=== PATIENT | male | born 2005 | race Hispanic/Latino ===

== ENCOUNTER 2024-04-19 23:58 | Inpatient (IN) | payer SELFPAY ==
[2024-04-20] MEDS ORDERED: Boostrix 0.5 ML (Tdap) VIAL (>/=7 yrs of age) ONE (00:15)
[2024-04-20 00:27] LABS: #Basophils 0.03 10x3/uL (0.0-0.2); %Basophils 0.3 % (0.0-1.0); %Eosinophils 0.8 % (0.0-10.0); %Lymphocytes 39.8 % (28.0-48.0); %Monocytes 7.2 % (0.0-4.0); %Neutrophils 51.4 % (31.0-61.0); Hematocrit 39.6 % (42.0-52.0); Hemoglobin 13.8 g/dL (14.0-18.0); Mean Corpuscular HGB CONC 34.8 g/dL (32.0-36.0); Mean Corpuscular Hemoglobin 30.2 pg (25.0-35.0); Mean Corpuscular Volume 86.7 fL (78.0-98.0); Mean Platelet Volume 11.4 fL (7.4-10.4); Platelet Count 175 10x3/uL (130-400); Red Blood Cell (RBC) Count 4.57 mill/uL (4.00-5.20)
[2024-04-20 00:40] LABS: Acetaminophen Less than 10 mcg/mL (Less than 10); Alcohol Less than 10.0 mg/dL (Less than 10); Salicylate Less than 8.0 mg/dL (Less than 8.0)
[2024-04-20] MEDS ORDERED: CEFAZOLIN 2 GM VIAL ONE (00:40)
[2024-04-20] MEDS ORDERED: Sodium Chloride 0.9% 100 ML ONE (00:40)
[2024-04-20 01:10] LABS: Carbon Dioxide 21 mmol/L (22-29); Chloride 104 mmol/L (98-107); Sodium 139 mmol/L (136-145)
[2024-04-20 01:11] LABS: ALT (SGPT) 98 U/L (Less than 45); AST (SGOT) 52 U/L (11-34); Albumin 4.3 g/dL (3.1-4.5); Alkaline Phosphatase 71 U/L (50-130); Anion Gap 17 mmol/L (10-20); BUN (Urea Nitrogen) 16 mg/dL (8.4-21.0); Bilirubin, Total 0.5 mg/dL (0.3-1.2); Calc. Creatinine Clearance 0 mL/min (70-130); Calcium 8.6 mg/dL (7.6-10.4); Estimated GFR 93; Glucose 139 mg/dL (70-105); Protein, Total 7.3 g/dL (6.0-8.3)
[2024-04-20] MEDS ORDERED: hydrALAZINE 20 MG/ML VIAL SLOW IVP PRN (01:52)
[2024-04-20] MEDS ORDERED: Dextrose 50% Abboject 50 ML SYRINGE SLOW IVP PRN (01:52)
[2024-04-20] MEDS ORDERED: Glucagon 1 MG/ML KIT IM PRN (01:52)
[2024-04-20] MEDS ORDERED: Promethazine HCl 25 MG/ML VIAL IM PRN (01:52)
[2024-04-20] MEDS ORDERED: Morphine 2 MG/ML VIAL SLOW IVP PRN (01:52)
[2024-04-20] MEDS ORDERED: Ondansetron PF 4 MG/2 ML Vial IVP PRN (01:52)
[2024-04-20] MEDS ORDERED: Dextrose 5% in Water 1,000 ML IV PRN (01:52)
[2024-04-20] MEDS ORDERED: Pantoprazole 40 MG VIAL ONE (02:48)
[2024-04-20 03:05] LABS: #Basophils Less than 0.03 10x3/uL (0.0-0.2); #Eosinophils Less than 0.03 10x3/uL (0.0-0.7); %Basophils 0.1 % (0.0-1.0); %Lymphocytes 9.3 % (28.0-48.0); %Monocytes 7.2 % (0.0-4.0); %Neutrophils 82.9 % (31.0-61.0); Hematocrit 35.8 % (42.0-52.0); Hemoglobin 12.6 g/dL (14.0-18.0); Mean Corpuscular HGB CONC 35.2 g/dL (32.0-36.0); Mean Corpuscular Hemoglobin 29.9 pg (25.0-35.0); Mean Corpuscular Volume 84.8 fL (78.0-98.0); Mean Platelet Volume 11.3 fL (7.4-10.4); Platelet Count 150 10x3/uL (130-400); Red Blood Cell (RBC) Count 4.22 mill/uL (4.00-5.20)
[2024-04-20] MEDS ORDERED: Morphine 4 MG/ML VIAL ONE (03:30)
[2024-04-20] MEDS ORDERED: Electrolyte Replacement Protocol 1 EACH FS PRN (03:32)
[2024-04-20] MEDS: Morphine 4 MG/ML VIAL SLOW IVP PRN (03:32)
[2024-04-20 03:37] LABS: INR-International Normal Ratio 1.3; Prothrombin Time 16.2 sec (12.0-14.7)
[2024-04-20 03:38] LABS: PTT 29.1 sec (22.9-36.1)
[2024-04-20 04:05] LABS: ALT (SGPT) 89 U/L (Less than 45); AST (SGOT) 53 U/L (11-34); Alkaline Phosphatase 63 U/L (50-130); Anion Gap 12 mmol/L (10-20); BUN (Urea Nitrogen) 14 mg/dL (8.4-21.0); Bilirubin, Total 0.4 mg/dL (0.3-1.2); Calc. Creatinine Clearance 117 mL/min (70-130); Carbon Dioxide 23 mmol/L (22-29); Chloride 106 mmol/L (98-107); Estimated GFR 123; Globulin 2.5 g/dL (2.4-3.5); Glucose 155 mg/dL (70-105); Potassium 3.1 mmol/L (3.5-5.1); Protein, Total 6.4 g/dL (6.0-8.3); Sodium 138 mmol/L (136-145)
[2024-04-20 04:10] LABS: Albumin 3.9 g/dL (3.1-4.5)
[2024-04-20] MEDS ORDERED: Potassium Chloride 20 MEQ (100 mL) BAG ONE (05:47)
[2024-04-20 06:01] LABS: Magnesium 1.6 mg/dL (1.7-2.2)
[2024-04-20] MEDS: Potassium Chloride 20 MEQ in Premix 1 BAG IVPB SCH (06:03)
[2024-04-20] MEDS ORDERED: Acetaminophen 325 MG TAB ONE (07:55)
[2024-04-20] MEDS: Acetaminophen 325 MG TAB PO PRN (08:14)
[2024-04-20] MEDS ORDERED: Magnesium 2 GM/50 ML BAG (IN WATER) ONE (08:15)
[2024-04-20] MEDS: Magnesium 2 GM/50 ML(in water) 2 GM in Premix 1 BAG IVPB SCH (08:20)
[2024-04-20 09:15] VITALS: BMI 22.1
[2024-04-20] MEDS: levETIRAcetam 500 MG (5 mL) VIAL SLOW IVP SCH ×2 (11:30→21:06)
[2024-04-20 13:07] LABS: Glucose 139 mg/dL (70-105); Protein, Total 7.5 g/dL (6.0-8.3)
[2024-04-20 13:08] LABS: Anion Gap 15 mmol/L (10-20); Carbon Dioxide 22 mmol/L (22-29); Globulin 3.1 g/dL (2.4-3.5)
[2024-04-20 13:10] LABS: Alkaline Phosphatase 67 U/L (50-130)
[2024-04-20 13:11] LABS: BUN (Urea Nitrogen) 8 mg/dL (8.4-21.0); Calc. Creatinine Clearance 127 mL/min (70-130); Estimated GFR 128
[2024-04-20 13:13] LABS: ALT (SGPT) 92 U/L (Less than 45); AST (SGOT) 62 U/L (11-34)
[2024-04-20 13:19] LABS: Albumin 4.4 g/dL (3.1-4.5); Bilirubin, Total 0.9 mg/dL (0.3-1.2); Chloride 100 mmol/L (98-107); Sodium 133 mmol/L (136-145)
[2024-04-20] MEDS ORDERED: Iopamidol-370 76% 500 ML MDV (1 ML CHARGE) ONE (13:47)
[2024-04-20] MEDS: STERILE WATER IV SCH (14:36)
[2024-04-20] MEDS: SODIUM CHLORIDE IV SCH (14:36)
[2024-04-20 18:34] LABS: Sodium 132 mmol/L (136-145)
[2024-04-20] MEDS ORDERED: SODIUM CHLORIDE IV SCH (19:00)
[2024-04-20] MEDS ORDERED: STERILE WATER IV SCH (19:00)
[2024-04-20] MEDS: CEFAZOLIN 2 GM in Sodium Chloride 0.9% 100 ML IVPB SCH (21:06)
[2024-04-21] MEDS ORDERED: Acetaminophen 650 MG Suppository PR PRN (01:43)
[2024-04-21] MEDS: Morphine 4 MG/ML VIAL ONE (02:38)
[2024-04-21 03:10] LABS: #Basophils Less than 0.03 10x3/uL (0.0-0.2); #Eosinophils Less than 0.03 10x3/uL (0.0-0.7); %Basophils 0.1 % (0.0-1.0); %Eosinophils 0.1 % (0.0-10.0); %Lymphocytes 5.8 % (28.0-48.0); %Monocytes 8.7 % (0.0-4.0); %Neutrophils 84.8 % (31.0-61.0); Hematocrit 36.4 % (42.0-52.0); Hemoglobin 12.8 g/dL (14.0-18.0); Mean Corpuscular HGB CONC 35.2 g/dL (32.0-36.0); Mean Corpuscular Hemoglobin 30.1 pg (25.0-35.0); Mean Corpuscular Volume 85.6 fL (78.0-98.0); Mean Platelet Volume 11.3 fL (7.4-10.4); Platelet Count 174 10x3/uL (130-400); RBC Distribution Width 12.2 % (11.5-14.5); Red Blood Cell (RBC) Count 4.25 mill/uL (4.00-5.20)
[2024-04-21] MEDS: Morphine 2 MG/ML VIAL SLOW IVP SCH (03:10)
[2024-04-21] MEDS: Etomidate 40 MG (20 mL) VIAL IVP SCH (04:05)
[2024-04-21] MEDS: SUCCINYLCHOLINE/SOD CL,ISO/PF 200 MG/10 ML SYRINGE FS SCH (04:20)
[2024-04-21 04:27] LABS: Actual Bicarbonate (HCO3a) 20.7 mEq/L (22-28); CO2 Tension 36.6 mmHg (35.0-45.0); Calcium, Ionized (arterial) 1.18 mmol/L (1.12-1.30); Carboxyhemoglobin (COHb) 0.6 gm% (0.0-3.0); Hematocrit-ABG 43 % (42.0-52.0); Hemoglobin (Hb) 14.7 g/dL (11.4-15.4); O2 Tension (PaO2), arterial 414.2 mmHg (80.0-100.0); Potassium - ABG Lab 4.17 mmol/L (3.70-5.30); Puncture Site Right Radial artery
[2024-04-21] MEDS: levETIRAcetam 500 MG (5 mL) VIAL SLOW IVP SCH (05:15)
[2024-04-21] MEDS: Mannitol 12.5 GM/50 ML SLOW IVP SCH (05:29)
[2024-04-21] MEDS ORDERED: EPINEPHrine 1 MG/ML VIAL ONE (05:34)
[2024-04-21] MEDS ORDERED: Bupivacaine PF 0.5% 30 ML VIAL ONE ×2 (05:34→06:32)
[2024-04-21 05:41] LABS: Anion Gap 16 mmol/L (10-20); BUN (Urea Nitrogen) 11 mg/dL (8.4-21.0); Calc. Creatinine Clearance 131 mL/min (70-130); Calcium 8.9 mg/dL (7.8-10.44); Carbon Dioxide 17 mmol/L (22-29); Chloride 101 mmol/L (98-107); Estimated GFR 130; Glucose 132 mg/dL (70-105); Magnesium 1.7 mg/dL (1.7-2.2); Potassium 3.8 mmol/L (3.5-5.1); Sodium 130 mmol/L (136-145)
[2024-04-21] MEDS ORDERED: Rocuronium Bromide 10 MG/ML (10ML VIAL) ONE (05:41)
[2024-04-21] MEDS ORDERED: PROPOFOL 20 ML ONE (05:41)
[2024-04-21] MEDS ORDERED: Midazolam HCl 2 mg/2 ml Vial ONE (05:41)
[2024-04-21] MEDS ORDERED: Fentanyl 250 MCG/5 ML VIAL ONE (05:41)
[2024-04-21] MEDS: Sodium Chloride 0.9% 1,000 ML IV SCH ×2 (06:06→09:20)
[2024-04-21] MEDS: Propofol 1,000 MG/100 ML VIAL IV ONE (06:06)
[2024-04-21] MEDS ORDERED: PHENYLEPHRINE-NS 100 MCG/ML 10 ML SYRINGE ONE (06:36)
[2024-04-21] MEDS ORDERED: Vancomycin 1 GM VIAL ONE (06:41)
[2024-04-21] MEDS ORDERED: Thrombin 5000 UNITS/5 ML VIAL ONE (06:41)
[2024-04-21] MEDS ORDERED: CEFAZOLIN 1 GM VIAL ONE (06:44)
[2024-04-21] MEDS ORDERED: Vasopressin 20 UNITS/ML VIAL ONE (07:17)
[2024-04-21] MEDS ORDERED: Vecuronium 10 MG VIAL ONE (08:01)
[2024-04-21] MEDS ORDERED: Bacitracin Zinc Ointment 30 gm TUBE ONE (08:24)
[2024-04-21] MEDS ORDERED: MINERAL OIL/WHITE PETROLATUM 3.5 GM TUBE ONE (08:31)
[2024-04-21] MEDS ORDERED: fentaNYL 50 mcg/mL 1 mL Vial ONE (08:46)
[2024-04-21] MEDS ORDERED: Vasopressin 20 UNITS in Sodium Chloride 0.9% 50 ML IV SCH (09:15)
[2024-04-21] MEDS: NOREPINEPHRINE 8 MG/250 ML-D5W 250 ML IVPB SCH (09:20)
[2024-04-21] MEDS: NOREPINEPHRINE 8 MG/250 ML-D5W 250 ML ONE (09:21)
[2024-04-21] MEDS: Pantoprazole 40 MG VIAL IVP SCH (10:10)
[2024-04-21] MEDS: Magnesium 2 GM/50 ML(in water) 2 GM in Premix 1 BAG IVPB SCH (10:10)
[2024-04-21] MEDS: Vasopressin In 0.9 % NaCl 40 UNIT in Premix 1 BAG IV SCH (11:30)
[2024-04-21] MEDS: Desmopressin Acetate 4 mcg/ml AMPUL IVP SCH ×2 (12:02→20:44)
[2024-04-21 13:43] LABS: Sodium 139 mmol/L (136-145)
[2024-04-21 13:54] LABS: Anion Gap 10 mmol/L (10-20); BUN (Urea Nitrogen) 10 mg/dL (8.4-21.0); Calc. Creatinine Clearance 131 mL/min (70-130); Calcium 7.1 mg/dL (7.8-10.44); Carbon Dioxide 16 mmol/L (22-29); Chloride 118 mmol/L (98-107); Estimated GFR 130; Glucose 163 mg/dL (70-105); Potassium 3.7 mmol/L (3.5-5.1)
[2024-04-21 17:58] LABS: Anion Gap 9 mmol/L (10-20); BUN (Urea Nitrogen) 9 mg/dL (8.4-21.0); Calc. Creatinine Clearance 145 mL/min (70-130); Calcium 7.6 mg/dL (7.8-10.44); Carbon Dioxide 20 mmol/L (22-29); Chloride 113 mmol/L (98-107); Estimated GFR 134; Glucose 128 mg/dL (70-105); Potassium 4.1 mmol/L (3.5-5.1); Sodium 138 mmol/L (136-145)
[2024-04-21] MEDS: QUEtiapine 25 MG TAB PO SCH (20:44)
[2024-04-21 21:47] LABS: Anion Gap 10 mmol/L (10-20); BUN (Urea Nitrogen) 8 mg/dL (8.4-21.0); Calc. Creatinine Clearance 154 mL/min (70-130); Calcium 7.3 mg/dL (7.8-10.44); Carbon Dioxide 21 mmol/L (22-29); Chloride 112 mmol/L (98-107); Estimated GFR 136; Glucose 112 mg/dL (70-105); Potassium 3.7 mmol/L (3.5-5.1); Sodium 139 mmol/L (136-145)
[2024-04-22 01:46] LABS: Anion Gap 10 mmol/L (10-20); BUN (Urea Nitrogen) 7 mg/dL (8.4-21.0); Calc. Creatinine Clearance 136 mL/min (70-130); Calcium 7.6 mg/dL (7.8-10.44); Carbon Dioxide 20 mmol/L (22-29); Chloride 111 mmol/L (98-107); Estimated GFR 131; Glucose 118 mg/dL (70-105); Potassium 3.5 mmol/L (3.5-5.1); Sodium 137 mmol/L (136-145)
[2024-04-22 06:29] VITALS: TEMP 98.1
[2024-04-22] MEDS: Potassium Chloride 20 MEQ in Premix 1 BAG IVPB SCH (07:15)
[2024-04-22 08:01] LABS: Actual Bicarbonate (HCO3a) 21.1 mEq/L (22-28); Base Excess (BEa) -2.4 mEq/L (-2.0 to +3.0); CO2 Tension 31.5 mmHg (35.0-45.0); Calcium, Ionized (arterial) 1.08 mmol/L (1.12-1.30); Carboxyhemoglobin (COHb) 0.3 gm% (0.0-3.0); Hematocrit-ABG 31 % (42.0-52.0); Hemoglobin (Hb) 10.4 g/dL (11.4-15.4); O2 Tension (PaO2), arterial 70.9 mmHg (80.0-100.0); Potassium - ABG Lab 3.57 mmol/L (3.70-5.30); pH, Arterial 7.443 (7.35-7.45)
[2024-04-22 08:07] LABS: Puncture Site Arterial Line
[2024-04-22 08:08] LABS: ALV-art Gradient 174.925 mmHg (0-20)
[2024-04-22 08:40] LABS: Base Excess (BEa) -3.4 mEq/L (-2.0 to +3.0); CO2 Tension 40.9 mmHg (35.0-45.0); Carboxyhemoglobin (COHb) 0.3 gm% (0.0-3.0); Hematocrit-ABG 30 % (42.0-52.0); Hemoglobin (Hb) 10.3 g/dL (11.4-15.4); O2 Tension (PaO2), arterial 78.5 mmHg (80.0-100.0); Potassium - ABG Lab 3.78 mmol/L (3.70-5.30); pH, Arterial 7.349 (7.35-7.45)
[2024-04-22 08:41] LABS: ALV-art Gradient 155.575 mmHg (0-20); Puncture Site Arterial Line
[2024-04-22 09:15] LABS: Actual Bicarbonate (HCO3a) 23.4 mEq/L (22-28); Base Excess (BEa) -4.5 mEq/L (-2.0 to +3.0); CO2 Tension 57.2 mmHg (35.0-45.0); Calcium, Ionized (arterial) 1.12 mmol/L (1.12-1.30); Hematocrit-ABG 31 % (42.0-52.0); Hemoglobin (Hb) 10.5 g/dL (11.4-15.4); O2 Tension (PaO2), arterial 87.6 mmHg (80.0-100.0); pH, Arterial 7.229 (7.35-7.45)
[2024-04-22 09:16] LABS: Puncture Site Arterial Line
[2024-04-22 10:38] VITALS: BP 105/48
[2024-04-22 15:38] LABS: Actual Bicarbonate (HCO3a) 22.4 mEq/L (22-28); CO2 Tension 47.1 mmHg (35.0-45.0); Calcium, Ionized (arterial) 1.13 mmol/L (1.12-1.30); Carboxyhemoglobin (COHb) 0.2 gm% (0.0-3.0); Hematocrit-ABG 30 % (42.0-52.0); Hemoglobin (Hb) 10.1 g/dL (11.4-15.4); O2 Tension (PaO2), arterial 212.8 mmHg (80.0-100.0); Potassium - ABG Lab 3.96 mmol/L (3.70-5.30); Puncture Site Arterial Line; pH, Arterial 7.296 (7.35-7.45)
[2024-04-22 15:39] LABS: ALV-art Gradient 13.525 mmHg (0-20)
== END 2024-04-22 12:54 | disposition expired | DRG 25 ==
LOC: ERS 23:58 → ERHOLD 04-20 01:52 → CCU 04-20 08:34
PROVIDERS: ADMIT Surgery; ATTEND Surgery
PROC: XX20X89 Monitoring of Brain Electrical Activity, Computer-aided Detection and Notification, New Technology Group 9 (ICD-10-PCS; principal; 2024-04-21)
PROC: 00N00ZZ Release Brain, Open Approach (ICD-10-PCS; 2024-04-21)
PROC: 0BH17EZ Insertion of Endotracheal Airway into Trachea, Via Natural or Artificial Opening (ICD-10-PCS; 2024-04-21)
PROC: 5A1935Z Respiratory Ventilation, Less than 24 Consecutive Hours (ICD-10-PCS; 2024-04-21)
PROC: 4A133R1 Monitoring of Arterial Saturation, Peripheral, Percutaneous Approach (ICD-10-PCS; 2024-04-21)
DX: S06.5X1A Traumatic subdural hemorrhage with loss of consciousness of 30 minutes or less, initial encounter (principal); J96.90 Respiratory failure, unspecified, unspecified whether with hypoxia or hypercapnia; E23.2 Diabetes insipidus; W17.89XA Other fall from one level to another, initial encounter; G93.89 Other specified disorders of brain; F90.9 Attention-deficit hyperactivity disorder, unspecified type; S02.0XXA Fracture of vault of skull, initial encounter for closed fracture; R40.2362 Coma scale, best motor response, obeys commands, at arrival to emergency department; R40.2242 Coma scale, best verbal response, confused conversation, at arrival to emergency department; R40.2142 Coma scale, eyes open, spontaneous, at arrival to emergency department; Y93.39 Activity, other involving climbing, rappelling and jumping off; Y92.89 Other specified places as the place of occurrence of the external cause; Z79.899 Other long term (current) drug therapy; S06.1X1A Traumatic cerebral edema with loss of consciousness of 30 minutes or less, initial encounter
CPT/HCPCS: 36415; 36416; 36600; 70450; 71045; 71260; 72125; 74177; 78610; 80053; 80307; 82805; 83735; 84295; 85025; 85610; 85730; 86850; 86900; 86901; 90471; 90715; 93005; 93010; 94002; 94003; 95813; 96365; 96375; A4217; A9521; J0171; J0665; J0690; J1953; J2150; J2250; J2270; J2272; J2470; J2597; J2704; J3010; J3370; J3475; J3480; J7030; Q9967

== ENCOUNTER 2024-04-22 12:22 | Day surgery (SDC) | payer OTHER, SELFPAY ==
[2024-04-22 13:25] VITALS: BMI 21.4
[2024-04-22] MEDS ORDERED: Refresh Lacri-lube Opth Oint 7 GM TUBE FS SCH ×2 (14:00)
[2024-04-22] MEDS ORDERED: NOREPINEPHRINE 8 MG/250 ML-D5W 250 ML IVPB SCH (14:15)
[2024-04-22] MEDS: Phenylephrine 40 MG/NS 250 ML 40 MG in Premix 1 BAG IVPB SCH (14:47)
[2024-04-22] MEDS: Hydrocortisone Sod Succ/PF 100 mg/2 ml Vial IVP SCH ×2 (14:48→21:32)
[2024-04-22] MEDS: Piperacillin/Tazobactam 3.375 GM in Sodium Chloride 0.9% 100 ML IVPB SCH ×2 (14:48→21:32)
[2024-04-22 14:59] LABS: #Basophils 0.03 10x3/uL (0.0-0.2); %Basophils 0.3 % (0.0-1.0); %Eosinophils 0.5 % (0.0-10.0); %Monocytes 6.3 % (0.0-4.0); %Neutrophils 81.6 % (31.0-61.0); Hematocrit 27.1 % (42.0-52.0); Hemoglobin 9.1 g/dL (14.0-18.0); Mean Corpuscular HGB CONC 33.6 g/dL (32.0-36.0); Mean Corpuscular Volume 89.4 fL (78.0-98.0); Mean Platelet Volume 11.2 fL (7.4-10.4); Platelet Count 93 10x3/uL (130-400); RBC Distribution Width 12.9 % (11.5-14.5); Red Blood Cell (RBC) Count 3.03 mill/uL (4.00-5.20)
[2024-04-22 15:11] LABS: Hemoglobin A1c 4.9 % (4.0-6.0)
[2024-04-22 15:12] LABS: INR-International Normal Ratio 1.5; PTT 39.3 sec (22.9-36.1); Prothrombin Time 18.5 sec (12.0-14.7)
[2024-04-22 15:15] LABS: ALT (SGPT) 38 U/L (Less than 45); AST (SGOT) 49 U/L (11-34); Albumin 2.5 g/dL (3.1-4.5); Alkaline Phosphatase 51 U/L (50-130); Anion Gap 10 mmol/L (10-20); BUN (Urea Nitrogen) 5 mg/dL (8.4-21.0); Bilirubin, Direct 0.3 mg/dL (0.1-0.3); Bilirubin, Total 0.6 mg/dL (0.3-1.2); Calc. Creatinine Clearance 171 mL/min (70-130); Carbon Dioxide 24 mmol/L (22-29); Chloride 104 mmol/L (98-107); Estimated GFR 141; Globulin 2.8 g/dL (2.4-3.5); Glucose 123 mg/dL (70-105); Magnesium 1.5 mg/dL (1.7-2.2); Protein, Total 5.3 g/dL (6.0-8.3); Sodium 134 mmol/L (136-145)
[2024-04-22 16:10] LABS: Bilirubin Negative (Negative); Blood, Urine Trace (Negative); Clarity Clear (Clear); Glucose, Urine (Dipstick) 30 mg/dL (Negative); Ketone, Urine Negative (Negative); Leukocyte Negative Leu/uL (Negative); Nitrite Negative (Negative); Protein, Urine (Dipstick) Negative (Neg-Trace); RBC/HPF 0-3 HPF (0-3); Specific Gravity, Urine 1.017 (1.002-1.036); Squamous Epithelial None Seen HPF (0-3); Urobilinogen Normal mg/dL (Less than 2); WBC/HPF 0-3 HPF (0-3)
[2024-04-22 16:12] LABS: Bacteria/HPF 1+ HPF (None Seen)
[2024-04-22] MEDS: Sodium Chloride 0.9% 1,000 ML IV SCH (16:17)
[2024-04-22] MEDS: Vasopressin In 0.9 % NaCl 40 UNIT in Premix 1 BAG IV SCH (17:12)
[2024-04-22] MEDS: Albumin 25% 25 GM (100 mL) BOT IVPB ONE (18:30)
[2024-04-22] MEDS: Magnesium 2 GM/50 ML(in water) 2 GM in Premix 1 BAG IVPB SCH (18:30)
[2024-04-22] MEDS: Ipratropium/Albuterol 3 ML NEB NEB SCH (18:34)
[2024-04-22] MEDS: Furosemide 40 MG (4 mL) VIAL SLOW IVP SCH (19:34)
[2024-04-22] MEDS: MINERAL OIL/WHITE PETROLATUM 3.5 GM TUBE EA EYE PRN (20:34)
[2024-04-22 20:52] LABS: Bacteria/HPF None Seen HPF (None Seen); Bilirubin Negative (Negative); Blood, Urine Negative (Negative); Clarity Clear (Clear); Glucose, Urine (Dipstick) Normal (Negative); Ketone, Urine Negative (Negative); Leukocyte Negative Leu/uL (Negative); Nitrite Negative (Negative); Protein, Urine (Dipstick) Negative (Neg-Trace); RBC/HPF 0-3 HPF (0-3); Specific Gravity, Urine 1.006 (1.002-1.036); Squamous Epithelial None Seen HPF (0-3); Urobilinogen Normal mg/dL (Less than 2); WBC/HPF 0-3 HPF (0-3)
[2024-04-22 21:05] LABS: ALV-art Gradient 230.775 mmHg (0-20); Actual Bicarbonate (HCO3a) 22.8 mEq/L (22-28); CO2 Tension 34.5 mmHg (35.0-45.0); Calcium, Ionized (arterial) 1.11 mmol/L (1.12-1.30); Carboxyhemoglobin (COHb) 0.3 gm% (0.0-3.0); Hematocrit-ABG 29 % (42.0-52.0); O2 Tension (PaO2), arterial 439.1 mmHg (80.0-100.0); Potassium - ABG Lab 3.47 mmol/L (3.70-5.30); Puncture Site LINE; pH, Arterial 7.438 (7.35-7.45)
[2024-04-22 21:38] LABS: #Basophils Less than 0.03 10x3/uL (0.0-0.2); #Eosinophils Less than 0.03 10x3/uL (0.0-0.7); %Basophils 0.1 % (0.0-1.0); %Monocytes 4.6 % (0.0-4.0); %Neutrophils 91.1 % (31.0-61.0); Hematocrit 24.6 % (42.0-52.0); Hemoglobin 8.8 g/dL (14.0-18.0); Mean Corpuscular HGB CONC 35.8 g/dL (32.0-36.0); Mean Corpuscular Hemoglobin 30.2 pg (25.0-35.0); Mean Corpuscular Volume 84.5 fL (78.0-98.0); Mean Platelet Volume 11.4 fL (7.4-10.4); Platelet Count 105 10x3/uL (130-400); RBC Distribution Width 12.6 % (11.5-14.5); Red Blood Cell (RBC) Count 2.91 mill/uL (4.00-5.20)
[2024-04-22 21:46] LABS: INR-International Normal Ratio 1.5; PTT 39.8 sec (22.9-36.1); Phosphorus 3.4 mg/dL (2.5-4.5); Prothrombin Time 18.1 sec (12.0-14.7)
[2024-04-22 21:48] LABS: Lactic Acid 1.14 mmol/L (0.50-2.20)
[2024-04-22 21:50] LABS: ALT (SGPT) 37 U/L (Less than 45); AST (SGOT) 49 U/L (11-34); Alkaline Phosphatase 55 U/L (50-130); Anion Gap 15 mmol/L (10-20); BUN (Urea Nitrogen) 5 mg/dL (8.4-21.0); Bilirubin, Direct 0.5 mg/dL (0.1-0.3); Calc. Creatinine Clearance 151 mL/min (70-130); Calcium 8.9 mg/dL (7.8-10.44); Carbon Dioxide 24 mmol/L (22-29); Chloride 98 mmol/L (98-107); Estimated GFR 136; Globulin 3.1 g/dL (2.4-3.5); Glucose 149 mg/dL (70-105); Magnesium 2.1 mg/dL (1.7-2.2); Potassium 3.5 mmol/L (3.5-5.1); Protein, Total 7.1 g/dL (6.0-8.3); Sodium 133 mmol/L (136-145)
[2024-04-23] MEDS: Albumin 25% 25 GM (100 mL) BOT IVPB SCH (02:20)
[2024-04-23] MEDS: Potassium Chloride 20 MEQ in Premix 1 BAG IVPB SCH (02:30)
[2024-04-23] MEDS: Sodium Chloride 0.9% 500 ML IV SCH (03:19)
[2024-04-23] MEDS: Potassium Chloride 20 MEQ (100 mL) BAG ONE (03:27)
[2024-04-23] MEDS: Albumin 25% 200 ML ONE (03:27)
[2024-04-23 05:38] LABS: Actual Bicarbonate (HCO3a) 25.1 mEq/L (22-28); Base Excess (BEa) 0.6 mEq/L (-2.0 to +3.0); Carboxyhemoglobin (COHb) 0.6 gm% (0.0-3.0); Hematocrit-ABG 22 % (42.0-52.0); Hemoglobin (Hb) 7.4 g/dL (11.4-15.4); O2 Tension (PaO2), arterial 532.2 mmHg (80.0-100.0); Potassium - ABG Lab 3.73 mmol/L (3.70-5.30); pH, Arterial 7.416 (7.35-7.45)
[2024-04-23 05:39] LABS: Puncture Site LINE
[2024-04-23 06:40] LABS: #Basophils Less than 0.03 10x3/uL (0.0-0.2); #Eosinophils Less than 0.03 10x3/uL (0.0-0.7); %Basophils 0.1 % (0.0-1.0); %Lymphocytes 7.3 % (28.0-48.0); %Monocytes 4.7 % (0.0-4.0); %Neutrophils 87.6 % (31.0-61.0); Mean Corpuscular Volume 85.8 fL (78.0-98.0); Mean Platelet Volume 12.2 fL (7.4-10.4); Platelet Count 106 10x3/uL (130-400); RBC Distribution Width 12.9 % (11.5-14.5); Red Blood Cell (RBC) Count 2.33 mill/uL (4.00-5.20)
[2024-04-23 06:55] LABS: Lactic Acid 1.83 mmol/L (0.50-2.20)
[2024-04-23 07:00] LABS: Troponin I 0.107 ng/mL (< 0.028)
[2024-04-23 08:05] LABS: INR-International Normal Ratio 1.6; PTT 41.2 sec (22.9-36.1); Phosphorus 3.3 mg/dL (2.5-4.5); Prothrombin Time 18.8 sec (12.0-14.7)
[2024-04-23 08:07] LABS: ALT (SGPT) 28 U/L (Less than 45); AST (SGOT) 40 U/L (11-34); Albumin 3.8 g/dL (3.1-4.5); Alkaline Phosphatase 44 U/L (50-130); Anion Gap 15 mmol/L (10-20); BUN (Urea Nitrogen) 6 mg/dL (8.4-21.0); Bilirubin, Direct 0.4 mg/dL (0.1-0.3); Bilirubin, Total 0.7 mg/dL (0.3-1.2); CK (CPK) 1201 U/L (30-200); Calc. Creatinine Clearance 118 mL/min (70-130); Calcium 8.6 mg/dL (7.8-10.44); Carbon Dioxide 24 mmol/L (22-29); Chloride 107 mmol/L (98-107); Estimated GFR 125; Globulin 2.6 g/dL (2.4-3.5); Glucose 154 mg/dL (70-105); Lipase 16 U/L (8-78); Potassium 3.6 mmol/L (3.5-5.1); Protein, Total 6.4 g/dL (6.0-8.3); Sodium 142 mmol/L (136-145)
[2024-04-23 08:12] LABS: Bilirubin Negative (Negative); Blood, Urine Negative (Negative); Clarity Clear (Clear); Glucose, Urine (Dipstick) Normal (Negative); Ketone, Urine Negative (Negative); Leukocyte Negative Leu/uL (Negative); Nitrite Negative (Negative); Protein, Urine (Dipstick) Negative (Neg-Trace); Specific Gravity, Urine 1.004 (1.002-1.036); Urobilinogen Normal mg/dL (Less than 2); pH, Urine 5.5 (5.0-9.0)
[2024-04-23 08:33] LABS: Lactic Acid 3.37 mmol/L (0.50-2.20)
[2024-04-23] MEDS: Furosemide 40 MG (4 mL) VIAL SLOW IVP SCH (10:53)
[2024-04-23] MEDS: Potassium Chloride 40 MEQ in Premix 1 BAG IVPB SCH ×2 (10:53→22:56)
[2024-04-23 11:14] LABS: Actual Bicarbonate (HCO3a) 22.3 mEq/L (22-28); Base Excess (BEa) -3.4 mEq/L (-2.0 to +3.0); CO2 Tension 43.4 mmHg (35.0-45.0); Calcium, Ionized (arterial) 1.17 mmol/L (1.12-1.30); Carboxyhemoglobin (COHb) 0.2 gm% (0.0-3.0); Hematocrit-ABG 26 % (42.0-52.0); Hemoglobin (Hb) 8.9 g/dL (11.4-15.4); O2 Tension (PaO2), arterial 499.3 mmHg (80.0-100.0); Potassium - ABG Lab 3.25 mmol/L (3.70-5.30); Puncture Site Arterial Line; pH, Arterial 7.329 (7.35-7.45)
[2024-04-23 11:22] LABS: Phosphorus 3.4 mg/dL (2.5-4.5)
[2024-04-23 12:27] LABS: Magnesium 2.1 mg/dL (1.7-2.2)
[2024-04-23] MEDS: Vasopressin In 0.9 % NaCl 40 UNIT in Premix 1 BAG IV SCH (12:34)
[2024-04-23 15:06] LABS: Actual Bicarbonate (HCO3a) 24.2 mEq/L (22-28); CO2 Tension 42.1 mmHg (35.0-45.0); Calcium, Ionized (arterial) 1.13 mmol/L (1.12-1.30); Carboxyhemoglobin (COHb) 0.3 gm% (0.0-3.0); Hematocrit-ABG 26 % (42.0-52.0); Hemoglobin (Hb) 8.9 g/dL (11.4-15.4); O2 Tension (PaO2), arterial 458.4 mmHg (80.0-100.0); Potassium - ABG Lab 3.39 mmol/L (3.70-5.30); Puncture Site ALINE; pH, Arterial 7.377 (7.35-7.45)
[2024-04-23 15:12] LABS: ALV-art Gradient 201.975 mmHg (0-20)
[2024-04-23] MEDS: Albumin 5% 25 GM (500 mL) BOT IVPB SCH ×2 (16:28→22:55)
[2024-04-23 17:38] LABS: Actual Bicarbonate (HCO3a) 21.3 mEq/L (22-28); Base Excess (BEa) -2.7 mEq/L (-2.0 to +3.0); CO2 Tension 33.4 mmHg (35.0-45.0); Calcium, Ionized (arterial) 1.29 mmol/L (1.12-1.30); Carboxyhemoglobin (COHb) 0.3 gm% (0.0-3.0); Hematocrit-ABG 26 % (42.0-52.0); Potassium - ABG Lab 3.42 mmol/L (3.70-5.30); pH, Arterial 7.422 (7.35-7.45)
[2024-04-23 17:38] LABS: Base Excess (BEa) -3.4 mEq/L (-2.0 to +3.0); CO2 Tension 25.3 mmHg (35.0-45.0); Calcium, Ionized (arterial) 1.24 mmol/L (1.12-1.30); Carboxyhemoglobin (COHb) 0.1 gm% (0.0-3.0); Hematocrit-ABG 26 % (42.0-52.0); Hemoglobin (Hb) 8.7 g/dL (11.4-15.4); Potassium - ABG Lab 3.38 mmol/L (3.70-5.30); pH, Arterial 7.494 (7.35-7.45)
[2024-04-23 17:39] LABS: Actual Bicarbonate (HCO3a) 23.3 mEq/L (22-28); Base Excess (BEa) -4.7 mEq/L (-2.0 to +3.0); CO2 Tension 58.9 mmHg (35.0-45.0); Calcium, Ionized (arterial) 1.31 mmol/L (1.12-1.30); Carboxyhemoglobin (COHb) 0.3 gm% (0.0-3.0); Hematocrit-ABG 28 % (42.0-52.0); Hemoglobin (Hb) 9.5 g/dL (11.4-15.4); O2 Tension (PaO2), arterial 264.1 mmHg (80.0-100.0); Potassium - ABG Lab 3.43 mmol/L (3.70-5.30); pH, Arterial 7.215 (7.35-7.45)
[2024-04-23 17:39] LABS: Actual Bicarbonate (HCO3a) 22.6 mEq/L (22-28); Base Excess (BEa) -6.1 mEq/L (-2.0 to +3.0); Calcium, Ionized (arterial) 1.36 mmol/L (1.12-1.30); Carboxyhemoglobin (COHb) 0.3 gm% (0.0-3.0); Hematocrit-ABG 29 % (42.0-52.0); O2 Tension (PaO2), arterial 324.7 mmHg (80.0-100.0); Potassium - ABG Lab 3.53 mmol/L (3.70-5.30)
[2024-04-23 17:40] LABS: Puncture Site ALINE
[2024-04-23 17:41] LABS: ALV-art Gradient 375.275 mmHg (0-20); Puncture Site ALINE
[2024-04-23 17:42] LABS: Puncture Site ALINE
[2024-04-23 17:43] LABS: ALV-art Gradient 447.375 mmHg (0-20); Puncture Site ALINE
[2024-04-23 18:52] LABS: Bilirubin Negative (Negative); Blood, Urine Trace (Negative); Clarity Clear (Clear); Glucose, Urine (Dipstick) Normal (Negative); Ketone, Urine Negative (Negative); Leukocyte Negative Leu/uL (Negative); Nitrite Negative (Negative); Protein, Urine (Dipstick) Negative (Neg-Trace); RBC/HPF 0-3 HPF (0-3); Specific Gravity, Urine 1.013 (1.002-1.036); Squamous Epithelial 0-3 HPF (0-3); Urobilinogen Normal mg/dL (Less than 2); pH, Urine 5.5 (5.0-9.0)
[2024-04-23 18:53] LABS: Bacteria/HPF 1+ HPF (None Seen)
[2024-04-23 20:14] LABS: #Basophils Less than 0.03 10x3/uL (0.0-0.2); #Eosinophils Less than 0.03 10x3/uL (0.0-0.7); %Basophils 0.1 % (0.0-1.0); %Lymphocytes 2.4 % (28.0-48.0); %Monocytes 7.3 % (0.0-4.0); %Neutrophils 89.8 % (31.0-61.0); Hematocrit 22.3 % (42.0-52.0); Hemoglobin 7.7 g/dL (14.0-18.0); Mean Corpuscular HGB CONC 34.5 g/dL (32.0-36.0); Mean Corpuscular Hemoglobin 29.3 pg (25.0-35.0); Mean Corpuscular Volume 84.8 fL (78.0-98.0); Mean Platelet Volume 12.5 fL (7.4-10.4); Platelet Count 113 10x3/uL (130-400); Red Blood Cell (RBC) Count 2.63 mill/uL (4.00-5.20)
[2024-04-23 20:27] LABS: Troponin I 0.066 ng/mL (< 0.028)
[2024-04-23 21:30] LABS: ALT (SGPT) 27 U/L (Less than 45); AST (SGOT) 34 U/L (11-34); Albumin 4.4 g/dL (3.1-4.5); Alkaline Phosphatase 46 U/L (50-130); Anion Gap 17 mmol/L (10-20); BUN (Urea Nitrogen) 9 mg/dL (8.4-21.0); Bilirubin, Direct 0.4 mg/dL (0.1-0.3); Bilirubin, Total 0.8 mg/dL (0.3-1.2); CK (CPK) 1113 U/L (30-200); Calc. Creatinine Clearance 121 mL/min (70-130); Calcium 8.5 mg/dL (7.8-10.44); Carbon Dioxide 23 mmol/L (22-29); Chloride 111 mmol/L (98-107); Estimated GFR 127; Globulin 2.2 g/dL (2.4-3.5); Glucose 152 mg/dL (70-105); Lipase 21 U/L (8-78); Magnesium 2.1 mg/dL (1.7-2.2); Potassium 3.7 mmol/L (3.5-5.1); Protein, Total 6.6 g/dL (6.0-8.3); Sodium 147 mmol/L (136-145)
[2024-04-23 21:45] LABS: Phosphorus 2.3 mg/dL (2.5-4.5)
[2024-04-23 22:37] LABS: Actual Bicarbonate (HCO3a) 22.1 mEq/L (22-28); Base Excess (BEa) -2.2 mEq/L (-2.0 to +3.0); CO2 Tension 35.5 mmHg (35.0-45.0); Calcium, Ionized (arterial) 1.14 mmol/L (1.12-1.30); Carboxyhemoglobin (COHb) 0.2 gm% (0.0-3.0); Hematocrit-ABG 24 % (42.0-52.0); O2 Tension (PaO2), arterial 415.7 mmHg (80.0-100.0); Potassium - ABG Lab 3.35 mmol/L (3.70-5.30); pH, Arterial 7.412 (7.35-7.45)
[2024-04-23 22:38] LABS: Puncture Site Arterial Line
[2024-04-23 22:39] LABS: ALV-art Gradient 252.925 mmHg (0-20)
[2024-04-24 00:38] LABS: INR-International Normal Ratio 1.5; Prothrombin Time 17.8 sec (12.0-14.7)
[2024-04-24] MEDS: Furosemide 20 MG (2 mL) VIAL SLOW IVP SCH (05:45)
[2024-04-24 06:58] LABS: #Basophils Less than 0.03 10x3/uL (0.0-0.2); #Eosinophils Less than 0.03 10x3/uL (0.0-0.7); %Basophils 0.1 % (0.0-1.0); %Lymphocytes 4.5 % (28.0-48.0); %Monocytes 8.8 % (0.0-4.0); %Neutrophils 86.2 % (31.0-61.0); Hematocrit 20.8 % (42.0-52.0); Hemoglobin 7.2 g/dL (14.0-18.0); Mean Corpuscular HGB CONC 34.6 g/dL (32.0-36.0); Mean Corpuscular Hemoglobin 29.5 pg (25.0-35.0); Mean Corpuscular Volume 85.2 fL (78.0-98.0); Mean Platelet Volume 12.1 fL (7.4-10.4); Platelet Count 130 10x3/uL (130-400); RBC Distribution Width 14.6 % (11.5-14.5); Red Blood Cell (RBC) Count 2.44 mill/uL (4.00-5.20)
[2024-04-24 07:15] LABS: Lactic Acid 1.61 mmol/L (0.50-2.20)
[2024-04-24 07:16] LABS: ALT (SGPT) 24 U/L (Less than 45); AST (SGOT) 31 U/L (11-34); Albumin 4.3 g/dL (3.1-4.5); Alkaline Phosphatase 43 U/L (50-130); Anion Gap 17 mmol/L (10-20); BUN (Urea Nitrogen) 14 mg/dL (8.4-21.0); Bilirubin, Direct 0.4 mg/dL (0.1-0.3); Bilirubin, Total 0.7 mg/dL (0.3-1.2); CK (CPK) 931 U/L (30-200); Calc. Creatinine Clearance 105 mL/min (70-130); Calcium 9.2 mg/dL (7.8-10.44); Carbon Dioxide 23 mmol/L (22-29); Chloride 112 mmol/L (98-107); Estimated GFR 109; Globulin 2.8 g/dL (2.4-3.5); Glucose 147 mg/dL (70-105); Lipase 58 U/L (8-78); Magnesium 2.3 mg/dL (1.7-2.2); Potassium 4.3 mmol/L (3.5-5.1); Protein, Total 7.1 g/dL (6.0-8.3); Sodium 148 mmol/L (136-145)
[2024-04-24 07:20] LABS: Troponin I 0.091 ng/mL (< 0.028)
[2024-04-24 07:21] LABS: Phosphorus 3.7 mg/dL (2.5-4.5)
[2024-04-24 07:33] LABS: Actual Bicarbonate (HCO3a) 25.4 mEq/L (22-28); Base Excess (BEa) 0.5 mEq/L (-2.0 to +3.0); CO2 Tension 41.9 mmHg (35.0-45.0); Calcium, Ionized (arterial) 1.14 mmol/L (1.12-1.30); Carboxyhemoglobin (COHb) 0.3 gm% (0.0-3.0); Hematocrit-ABG 22 % (42.0-52.0); Hemoglobin (Hb) 7.5 g/dL (11.4-15.4); O2 Tension (PaO2), arterial 560.7 mmHg (80.0-100.0); Potassium - ABG Lab 3.75 mmol/L (3.70-5.30); Puncture Site Arterial Line
[2024-04-24 07:34] LABS: ALV-art Gradient 99.925 mmHg (0-20)
[2024-04-24 10:11] LABS: INR-International Normal Ratio 1.5; Prothrombin Time 17.9 sec (12.0-14.7)
[2024-04-24 10:33] LABS: Bacteria/HPF None Seen HPF (None Seen); Bilirubin Negative (Negative); Blood, Urine Trace (Negative); Clarity Clear (Clear); Glucose, Urine (Dipstick) Normal (Negative); Ketone, Urine Negative (Negative); Leukocyte Negative Leu/uL (Negative); Nitrite Negative (Negative); Protein, Urine (Dipstick) Negative (Neg-Trace); RBC/HPF 0-3 HPF (0-3); Specific Gravity, Urine 1.004 (1.002-1.036); Squamous Epithelial None Seen HPF (0-3); Urobilinogen Normal mg/dL (Less than 2); WBC/HPF 0-3 HPF (0-3); pH, Urine 6.5 (5.0-9.0)
[2024-04-24 10:34] LABS: pH, Arterial 7.177 (7.35-7.45)
[2024-04-24 10:35] LABS: CO2 Tension 62.4 mmHg (35.0-45.0)
[2024-04-24 10:39] LABS: Sperm/HPF 3+ HPF (None Seen)
[2024-04-24 17:13] LABS: Bilirubin Negative (Negative); Blood, Urine Moderate (Negative); Glucose, Urine (Dipstick) Negative (Negative); Ketone, Urine Negative (Negative); Leukocyte Negative (Negative); Nitrite Negative (Negative); Protein, Urine (Dipstick) 30 mg/dL (Neg-Trace); Urobilinogen 0.2 mg/dL (Less than 2)
[2024-04-24 17:20] LABS: Clarity Clear (Clear)
[2024-04-24 17:21] LABS: Bacteria/HPF None Seen HPF (None Seen); RBC/HPF None Seen HPF (0-3); Squamous Epithelial None Seen HPF (0-3); WBC/HPF None Seen HPF (0-3)
[2024-04-24 17:36] LABS: #Basophils Less than 0.03 10x3/uL (0.0-0.2); #Eosinophils Less than 0.03 10x3/uL (0.0-0.7); %Basophils 0.1 % (0.0-1.0); %Lymphocytes 3.4 % (28.0-48.0); %Monocytes 7.5 % (0.0-4.0); %Neutrophils 88.2 % (31.0-61.0); Hematocrit 24.4 % (42.0-52.0); Hemoglobin 8.5 g/dL (14.0-18.0); Mean Corpuscular HGB CONC 34.8 g/dL (32.0-36.0); Mean Corpuscular Hemoglobin 29.7 pg (25.0-35.0); Mean Corpuscular Volume 85.3 fL (78.0-98.0); Mean Platelet Volume 11.3 fL (7.4-10.4); Platelet Count 138 10x3/uL (130-400); RBC Distribution Width 14.5 % (11.5-14.5); Red Blood Cell (RBC) Count 2.86 mill/uL (4.00-5.20)
[2024-04-24 17:45] LABS: Lactic Acid 1.44 mmol/L (0.50-2.20)
[2024-04-24 18:08] LABS: ALT (SGPT) 22 U/L (Less than 45); AST (SGOT) 29 U/L (11-34); Alkaline Phosphatase 47 U/L (50-130); Anion Gap 15 mmol/L (10-20); BUN (Urea Nitrogen) 15 mg/dL (8.4-21.0); Bilirubin, Direct 0.5 mg/dL (0.1-0.3); Bilirubin, Total 1.1 mg/dL (0.3-1.2); Calc. Creatinine Clearance 120 mL/min (70-130); Calcium 9.2 mg/dL (7.8-10.44); Carbon Dioxide 25 mmol/L (22-29); Chloride 115 mmol/L (98-107); Estimated GFR 126; Globulin 2.9 g/dL (2.4-3.5); Glucose 146 mg/dL (70-105); Magnesium 2.5 mg/dL (1.7-2.2); Phosphorus 2.4 mg/dL (2.5-4.5); Potassium 4.2 mmol/L (3.5-5.1); Protein, Total 6.9 g/dL (6.0-8.3); Sodium 151 mmol/L (136-145)
[2024-04-24 18:41] VITALS: TEMP 98.6
[2024-04-24 20:09] LABS: Actual Bicarbonate (HCO3a) 23.1 mEq/L (22-28); Base Excess (BEa) -1.2 mEq/L (-2.0 to +3.0); CO2 Tension 36.8 mmHg (35.0-45.0); Calcium, Ionized (arterial) 1.14 mmol/L (1.12-1.30); Carboxyhemoglobin (COHb) 0.3 gm% (0.0-3.0); Hematocrit-ABG 28 % (42.0-52.0); Hemoglobin (Hb) 9.5 g/dL (11.4-15.4); O2 Tension (PaO2), arterial 320.4 mmHg (80.0-100.0); Potassium - ABG Lab 3.86 mmol/L (3.70-5.30); pH, Arterial 7.415 (7.35-7.45)
[2024-04-24 20:11] LABS: Puncture Site Arterial Line
[2024-04-24 20:19] LABS: INR-International Normal Ratio 1.5; Prothrombin Time 18.3 sec (12.0-14.7)
[2024-04-24] MEDS: Calcium Chloride 1 GM/10 ML Abboject SYRINGE IVP SCH (21:36)
[2024-04-25 07:08] VITALS: BP 137/69
[2024-04-25 07:35] LABS: Actual Bicarbonate (HCO3a) 27.8 mEq/L (22-28); Base Excess (BEa) 3.2 mEq/L (-2.0 to +3.0); CO2 Tension 42.9 mmHg (35.0-45.0); Calcium, Ionized (arterial) 1.16 mmol/L (1.12-1.30); Carboxyhemoglobin (COHb) 0.3 gm% (0.0-3.0); Hematocrit-ABG 29 % (42.0-52.0); Hemoglobin (Hb) 9.8 g/dL (11.4-15.4); O2 Tension (PaO2), arterial 531.9 mmHg (80.0-100.0); Potassium - ABG Lab 3.05 mmol/L (3.70-5.30)
[2024-04-25 07:36] LABS: Puncture Site Arterial Line
[2024-04-25 07:37] LABS: ALV-art Gradient 127.475 mmHg (0-20)
[2024-04-25 09:12] LABS: #Basophils Less than 0.03 10x3/uL (0.0-0.2); #Eosinophils Less than 0.03 10x3/uL (0.0-0.7); %Basophils 0.2 % (0.0-1.0); %Lymphocytes 9.6 % (28.0-48.0); %Neutrophils 78.4 % (31.0-61.0); Hematocrit 26.4 % (42.0-52.0); Hemoglobin 8.9 g/dL (14.0-18.0); Mean Corpuscular HGB CONC 33.7 g/dL (32.0-36.0); Mean Corpuscular Hemoglobin 29.5 pg (25.0-35.0); Mean Corpuscular Volume 87.4 fL (78.0-98.0); Phosphorus 2.8 mg/dL (2.5-4.5); Platelet Count 138 10x3/uL (130-400); RBC Distribution Width 15.3 % (11.5-14.5); Red Blood Cell (RBC) Count 3.02 mill/uL (4.00-5.20)
[2024-04-25 09:16] LABS: ALT (SGPT) 23 U/L (Less than 45); AST (SGOT) 34 U/L (11-34); Albumin 3.9 g/dL (3.1-4.5); Alkaline Phosphatase 51 U/L (50-130); Anion Gap 16 mmol/L (10-20); BUN (Urea Nitrogen) 16 mg/dL (8.4-21.0); Bilirubin, Direct 0.8 mg/dL (0.1-0.3); Bilirubin, Total 1.3 mg/dL (0.3-1.2); Calc. Creatinine Clearance 147 mL/min (70-130); Calcium 9.2 mg/dL (7.8-10.44); Carbon Dioxide 26 mmol/L (22-29); Chloride 117 mmol/L (98-107); Estimated GFR 134; Globulin 2.8 g/dL (2.4-3.5); Glucose 139 mg/dL (70-105); Magnesium 2.4 mg/dL (1.7-2.2); Potassium 3.1 mmol/L (3.5-5.1); Protein, Total 6.7 g/dL (6.0-8.3); Sodium 156 mmol/L (136-145)
[2024-04-25 09:29] LABS: Lactic Acid 1.66 mmol/L (0.50-2.20)
[2024-04-25] MEDS ORDERED: Albumin 5% 500 ML ONE (09:33)
[2024-04-25] MEDS ORDERED: Phenylephrine 40 MG/NS 250 ML 250 ML ONE (09:33)
[2024-04-25] MEDS ORDERED: Sodium Chloride 0.9% 250 ML 250 ML ONE (09:39)
[2024-04-25] MEDS ORDERED: NOREPINEPHRINE 8 MG/250 ML-D5W 250 ML ONE (09:39)
[2024-04-25] MEDS ORDERED: Sodium Chloride 0.9% 100 ML ONE (09:39)
[2024-04-25] MEDS ORDERED: Vasopressin 20 UNITS/ML VIAL ONE (09:40)
[2024-04-25 10:25] LABS: Bacteria/HPF None Seen HPF (None Seen); Squamous Epithelial None Seen HPF (0-3)
[2024-04-25 10:37] LABS: Sperm/HPF 1+ HPF (None Seen)
[2024-04-25 12:46] LABS: Bilirubin Negative (Negative); Blood, Urine 1+ (Negative); Clarity Turbid (Clear); Glucose, Urine (Dipstick) 30 mg/dL (Negative); Ketone, Urine Negative (Negative); Leukocyte Negative Leu/uL (Negative); Nitrite Negative (Negative); Protein, Urine (Dipstick) 70 mg/dL (Neg-Trace); Specific Gravity, Urine 1.039 (1.002-1.036); Urobilinogen Normal mg/dL (Less than 2); pH, Urine 6.5 (5.0-9.0)
== END 2024-04-25 16:00 | disposition expired ==
LOC: SDC 12:22 → CCU 12:22 → SDC 04-23 16:19 → CCU 04-23 16:19 → SDC 04-25 16:00
PROVIDERS: ATTEND Nurse Practitioner Acute Care
DX: S06.2X9A Diffuse traumatic brain injury with loss of consciousness of unspecified duration, initial encounter (principal); X58.XXXA Exposure to other specified factors, initial encounter
CPT/HCPCS: 36415; 36430; 71045; 80053; 81001; 81003; 81015; 82150; 82248; 82550; 82805; 83036; 83605; 83690; 83735; 84100; 84484; 85025; 85610; 85730; 86850; 86900; 86901; 87205; 93005; 93010; 93306; 94002; 94003; 94640; J1720; J1940; J2543; J3475; J3480; J7030; J7050; J7620; P9016; P9045; P9047